=== PATIENT | female | born 1970 | race Caucasian/White ===

== ENCOUNTER → 2016-09-22 | Outpatient (CLI) | payer BC ==
[2016-09-22 12:56] VITALS: BMI 44.7
== END | disposition home or self-care (01) ==
LOC: BARWHC3 08:53
PROVIDERS: ATTEND Surgery
DX: Z71.3 Dietary counseling and surveillance (principal); E66.01 Morbid (severe) obesity due to excess calories; Z68.41 Body mass index [BMI] 40.0-44.9, adult
CPT/HCPCS: 97804

== ENCOUNTER 2016-12-17 11:10 | Day surgery (SDC) | payer BC ==
[2016-12-16 10:41] VITALS: BMI 41.1
[~2016-12-17 11:10] MED LIST: LACTATED RINGERS 1,000 ML IV SCH; LIDOCAINE 1% 20 ML VIAL (10MG/ML) FOR IV START INTRADERMA PRN
[2016-12-17 11:28] VITALS: RESP 16; TEMP 98.2
[2016-12-17] MEDS ORDERED: PROPOFOL 10 MG/ML 20 ML VIAL IV ONE (13:12)
[2016-12-17] MEDS ORDERED: LIDOCAINE 1% INJ 10MG/ML (20 ML MDV) ONE (13:12)
--- NOTE | 2016-12-17 13:13 | P.GSHP ---
History of Present Illness H&P Date: 12/17/16 Chief Complaint: GERD This a 46-year-old female referred from dr. leach . Patient presents today for EGD. She's had GERD issues with GERD. - Constitutional Constitutional: Reports as per HPI Past Medical History Past Medical History: Thyroid Disorder Additional Past Medical History / Comment(s): hypothyroidism, , hay fever, generalized edema (takes 40mg lasix daily) RLS History of Any Multi-Drug Resistant Organisms: MRSA Date of last positivie culture/infection: 2013 MDRO Source:: Respiratory tract (nose to lung bases) Past Surgical History: Adenoidectomy Additional Past Surgical History / Comment(s): biopsies of rash on bilateral legs (February 2016) , wisdom teeth removed under anesthesia Past Anesthesia/Blood Transfusion Reactions: No Reported Reaction Past Psychological History: Anxiety Smoking Status: Never smoker Past Alcohol Use History: None Reported Past Drug Use History: None Reported - Past Family History Mother Family Medical History: Hypertension, Myocardial Infarction ([place]) Additional Family Medical History / Comment(s): [place] in 2013, Father Additional Family Medical History / Comment(s): was an alcoholic, 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 Medications and Allergies Home Medications Medication Instructions Recorded Confirmed Type Cetirizine HCl/Pseudoephedrine 1 each PO BID 12/16/16 12/17/16 History [Zyrtec-D Tablet] Cholecalciferol (Vitamin D3) 2,000 units PO DAILY 12/16/16 12/17/16 History [Vitamin D3] Diazepam [Valium] 2.5 mg PO HS 12/16/16 12/17/16 History FLUoxetine HCL [Fluoxetine HCl] 10 mg PO BID 12/16/16 12/17/16 History Furosemide [Lasix] 40 mg PO DAILY 12/16/16 12/17/16 History Levothyroxine Sodium [Synthroid] 50 mcg PO DAILY 12/16/16 12/17/16 History Liothyronine Sodium [Cytomel] 5 mcg PO DAILY 12/16/16 12/17/16 History Q-Nasl 2 sprays EA NOSTRIL HS 12/16/16 12/17/16 History Allergies Allergy/AdvReac Type Severity Reaction Status Date / Time clindamycin Allergy Rash/Hives, Verified 12/16/16 10:32 diarrhea Surgical - Exam Vital Signs Temp Pulse Resp BP Pulse Ox 98.2 F 77 16 146/82 95 12/17/16 11:27 12/17/16 11:27 12/17/16 11:27 12/17/16 11:27 12/17/16 11:27 - General well developed, no distress - Eyes PERRL - ENT normal pinna - Neck no masses - Respiratory normal expansion - Cardiovascular Rhythm: regular - Abdomen Abdomen: soft, non tender Assessment and Plan Plan: GERD. We'll perform EGD.
--- NOTE | 2016-12-17 13:23 | P.OP ---
Date of Procedure: 12/17/16 Preoperative Diagnosis: GERD Postoperative Diagnosis: Mild antral gastritis Procedure(s) Performed: EGD Implants: Anesthesia: MAC Surgeon: Marlon Aden Pathology: other (Antrum) Condition: stable Disposition: PACU Indications for Procedure: Operative Findings: Description of Procedure: The patient's placed on the endoscopy table in the lateral position. She received IV sedation. The gastroscope some placed oropharynx and passed in the esophagus and stomach. Scope was then placed through the pylorus. The first and second portion of the duodenum appeared normal. Scope was then brought back the antrum and this appeared mildly inflamed. A biopsies performed. The scope was unretroflexed and remainder some appeared normal. The GE junction was at 40 cm. The distal esophagus appeared normal. The proximal esophagus. Normal. Scope withdrawn for patient.
[2016-12-17 14:03] VITALS: BP 143/74; PULSE 62
== END 2016-12-17 14:13 | disposition home or self-care (01) ==
LOC: ORWHC2ENDO 11:10
PROVIDERS: ATTEND Surgery
DX: K29.50 Unspecified chronic gastritis without bleeding (principal); E03.9 Hypothyroidism, unspecified; F41.9 Anxiety disorder, unspecified; Z79.899 Other long term (current) drug therapy; Z88.1 Allergy status to other antibiotic agents
CPT/HCPCS: 88305; 88342; 84703; 43239; J2001; J2704

== ENCOUNTER → 2016-12-29 | Outpatient (CLI) | payer BC ==
[2016-12-29 14:09] VITALS: BP 133/74; PULSE 85; TEMP 98; BMI 41.2
--- NOTE | 2016-12-29 14:10 | P.HPBAR ---
Bariatric H&P - History & Physicial H&P Date: 12/29/16 History & Physicial: Visit/CC: Patient initial contact: Initial weight: 129.092 kg Initial weight in pounds: Height: 5 ft 7 in Initial BMI: Last weight: Current weight: 119.386 kg Current weight in pounds: Current BMI: [place] body weight (based on NIH guidelines): Excess body weight loss: The patient is a 46 year-old F who presents for Bariatric Assessment. Patient resents today for new patient consultation for LAP-BAND surgery. Patient's mother had LAP-BAND surgery performed in the past. Her mother was successful in losing approximately 100 pounds of weight. Patient wished undergo LAP-BAND surgery. She's had lifetime problem with obesity BC. Her BMI is 42. Past Medical History Past Medical History: Thyroid Disorder Additional Past Medical History / Comment(s): hypothyroidism, , hay fever, generalized edema (takes 40mg lasix daily) RLS History of Any Multi-Drug Resistant Organisms: MRSA Year Discovered:: 2013 MDRO Source:: Respiratory tract (nose to lung bases) Past Surgical History: Adenoidectomy Additional Past Surgical History / Comment(s): biopsies of rash on bilateral legs (February 2016) , wisdom teeth removed under anesthesia Past Anesthesia/Blood Transfusion Reactions: No Reported Reaction Past Psychological History: Anxiety Smoking Status: Never smoker Past Alcohol Use History: None Reported Past Drug Use History: None Reported - Past Family History Mother Family Medical History: Hypertension, Myocardial Infarction ([place]) Additional Family Medical History / Comment(s): [place] in 2013, Father Additional Family Medical History / Comment(s): was an alcoholic, 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 Surgical - Exam - General well developed, no distress - Eyes PERRL - ENT normal pinna - Neck no masses - Respiratory normal expansion - Cardiovascular Rhythm: regular - Abdomen Abdomen: soft, non tender Bariatric Assessment & Plan Plan: Chad andrews German. Patient's BMI is 42. Patient will be scheduled for LAP-BAND surgery once she obtains insurance authorization. Bariatric Checklist Checklist: Plan: Checklist: EGD: 1. Hiatal hernia: 2. H. Pylori: HgbA1c: Vitamin D: Smoking: Never smoker Primary care physician referral: Psychiatry clearance: Cardiology clearance: Sleep study: Diet journal: VTE risk score: VTE risk level: Rehab needs at discharge:
== END | disposition home or self-care (01) ==
LOC: BARWHC3 13:09
PROVIDERS: ATTEND Surgery
DX: Z01.818 Encounter for other preprocedural examination (principal); F41.9 Anxiety disorder, unspecified; Z98.84 Bariatric surgery status
CPT/HCPCS: 99211

== ENCOUNTER 2017-03-06 06:08 | Inpatient (IN) | payer BC ==
[2017-02-26 14:49] VITALS: BMI 40.6
[~2017-03-06 06:08] MED LIST changes: -LACTATED RINGERS 1,000 ML IV SCH; -LIDOCAINE 1% 20 ML VIAL (10MG/ML) FOR IV START INTRADERMA PRN; +ceFAZolin 2 GM in SODIUM CHLORIDE 0.9% 100 ML IVPB ONE
[2017-03-06] MEDS ORDERED: ONDANSETRON 4 MG/2 ML VIAL IVP ONE ×2 (06:18→09:33)
[2017-03-06] MEDS ORDERED: SCOPOLAMINE 1.5MG/72HR PATCH TRANSDERM ONE (06:18)
[2017-03-06] MEDS ORDERED: HYDROmorphone 1 MG/ML 1 ML SYRINGE IVP PRN (06:18)
[2017-03-06] MEDS ORDERED: MIDAZOLAM 2 MG/2 ML VIAL IV PRN (06:18)
[2017-03-06] MEDS ORDERED: DEXAMETHASONE SOD PHOSPHATE 10 MG/ML 1 ML VIAL IV ONE (06:18)
[2017-03-06] MEDS: LACTATED RINGERS 1,000 ML IV SCH (06:53)
[2017-03-06] MEDS ORDERED: HEPARIN SODIUM,PORCINE 5,000 UNIT/ML 1 ML VIAL SQ ONE ×2 (07:49→07:50)
--- NOTE | 2017-03-06 07:51 | P.GSHP ---
History of Present Illness H&P Date: 03/06/17 Chief Complaint: Morbid obesity., BMI 41 This is a 46-year-old female who presents today for LAP-BAND procedure. Patient has had lifetime problems obesity. Patient undergo LAP-BAND surgery for treatment of her colon previously tomography study. Patient has been well detailed on the risk of surgery. Past Medical History Past Medical History: Sleep Apnea/CPAP/BIPAP, Thyroid Disorder Additional Past Medical History / Comment(s): hypothyroid History of Any Multi-Drug Resistant Organisms: MRSA Date of last positivie culture/infection: 2013 MDRO Source:: Respiratory tract (nose to lung bases) Past Surgical History: Adenoidectomy Additional Past Surgical History / Comment(s): biopsies of rash on bilateral legs , SI joint fusion pelvis Past Anesthesia/Blood Transfusion Reactions: Motion Sickness Smoking Status: Never smoker - Past Family History Mother Family Medical History: No Reported History Additional Family Medical History / Comment(s): [place] in 2013, Father Additional Family Medical History / Comment(s): was an alcoholic, 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 Medications and Allergies Home Medications Medication Instructions Recorded Confirmed Type Cetirizine HCl/Pseudoephedrine 1 each PO BID 12/16/16 03/06/17 History [Zyrtec-D Tablet] Cholecalciferol (Vitamin D3) 2,000 units PO DAILY 12/16/16 03/06/17 History [Vitamin D3] Diazepam [Valium] 2.5 mg PO HS 12/16/16 03/06/17 History FLUoxetine HCL [Fluoxetine HCl] 10 mg PO BID 12/16/16 02/26/17 History Furosemide [Lasix] 40 mg PO DAILY 12/16/16 03/06/17 History Levothyroxine Sodium [Synthroid] 50 mcg PO DAILY 12/16/16 03/06/17 History Liothyronine Sodium [Cytomel] 5 mcg PO DAILY 12/16/16 03/06/17 History Q-Nasl 2 sprays EA NOSTRIL HS 12/16/16 03/06/17 History HYDROcodone/APAP 10-325MG [[place] 1 tab PO TID PRN 02/26/17 02/26/17 History 10-325] Allergies Allergy/AdvReac Type Severity Reaction Status Date / Time clindamycin Allergy Rash/Hives, Verified 02/26/17 14:36 diarrhea Surgical - Exam Vital Signs Temp Pulse Resp BP Pulse Ox 98.1 F 80 16 105/62 95 03/06/17 06:50 03/06/17 06:50 03/06/17 06:50 03/06/17 06:50 03/06/17 06:50 - General well developed, no distress - Eyes PERRL - ENT normal pinna - Neck no masses - Respiratory normal expansion, normal respiratory effort - Cardiovascular Rhythm: regular - Abdomen Abdomen: soft, non tender Assessment and Plan Plan: Morbid obesity, BMI 41. We'll perform LAP-BAND procedure.
[2017-03-06] MEDS ORDERED: SUCCINYLCHOLINE CHLORIDE 100 MG/5 ML SYR IV ONE (07:54)
[2017-03-06] MEDS ORDERED: ROCURONIUM BROMIDE 10 MG/ML 10 ML VIAL IV ONE (07:54)
[2017-03-06] MEDS ORDERED: GLYCOPYRROLATE 0.2 MG/ML 2 ML VIAL ONE (07:54)
[2017-03-06] MEDS ORDERED: PROPOFOL 10 MG/ML 20 ML VIAL IV ONE (07:54)
[2017-03-06] MEDS ORDERED: MIDAZOLAM 2 MG/2 ML VIAL ONE (07:54)
[2017-03-06] MEDS ORDERED: HYDROmorphone (PF) 1 MG/ML ONE (07:54)
[2017-03-06] MEDS ORDERED: LIDOCAINE 1% INJ 10MG/ML (20 ML MDV) ONE (07:54)
[2017-03-06] MEDS ORDERED: NEOSTIGMINE 1 MG/ML 10 ML VIAL ONE (07:54)
[2017-03-06] MEDS ORDERED: fentaNYL (PF) 50 MCG/ML 2 ML AMP ONE (07:54)
[2017-03-06] MEDS ORDERED: LIDOCAINE 2%-EPI 1:100,000 20 ML VIAL SQ ONE (08:33)
[2017-03-06] MEDS ORDERED: BUPIVACAINE (PF) 0.25% 30 ML VIAL SQ ONE (08:33)
[2017-03-06] MEDS ORDERED: LACTATED RINGERS 1,000 ML IV ONE (08:52)
[2017-03-06] MEDS ORDERED: NALOXONE 0.4 MG/ML 1 ML VIAL IV PRN (09:55)
[2017-03-06] MEDS ORDERED: diphenhydrAMINE 50 MG/ML 1 ML VIAL IVP ONE (10:00)
[2017-03-06] MEDS: ACETAMINOPHEN IV (For NPO) 1,000 MG in EMPTY BAG 1 BAG IVPB ONE ×2 (10:25→10:41)
[2017-03-06] MEDS: KETOROLAC 30 MG/ML 1 ML VIAL IVP SCH ×2 (10:40→17:25)
[2017-03-06] MEDS: HYDROmorphone 1 MG/ML 1 ML SYRINGE IVP PRN ×3 (11:30→20:49)
[2017-03-06] MEDS: ONDANSETRON 4 MG/2 ML VIAL IVP PRN ×2 (11:31→21:23)
[2017-03-06] MEDS: 0.9% NACL WITH KCL 20 MEQ/L 1,000 ML IV SCH ×2 (11:31→17:26)
[2017-03-06] MEDS: ALBUTEROL NEBULIZED 2.5 MG/3 ML INHALATION SCH ×3 (12:02→19:49)
--- NOTE | 2017-03-06 13:24 | P.OP ---
Date of Procedure: 03/06/17 Preoperative Diagnosis: Morbid obesity Postoperative Diagnosis: Morbid obesity Procedure(s) Performed: LAP-BAND procedure Implants: Anesthesia: LINO Surgeon: Marlon Aden Estimated Blood Loss (ml): 5 Pathology: none sent Condition: stable Disposition: PACU Indications for Procedure: Operative Findings: Description of Procedure: The patient's placed on the operative table in the supine position. She received general anesthesia. She was then placed in dorsal lithotomy position. Her abdomen was prepped and draped usual sterile fashion. The skin was incised in the left periumbilical area and then using a 5 mm optical trocar under direct visitation. And was entered. The abdomen was insufflated and then after adequate insufflation the laparoscope placed back the pleural cavity. Next a 5 mm trocar was placed in the right epigastric position and right lateral position and then a 15 mm trochars placed in the left epigastric position and another 5 mm trocar was placed in the left lateral position. The left lateral lobe liver was retracted. The stomach was visualized. The angle of Hiss was then bluntly dissected. And then the pars flaccida area is also considering dissection. Using gentle dissection a grasper is placed in the retrogastric tunnel between the pars flaccida and the angle of Hiss. The LAP- BAND was placed into the pleural cavity and then the LAP-BAND was drawn around the stomach. In the LAP-BAND was withdrawn. The buckle was then secured and the buckle was then closed. Next the anterior gastric wall plication was performed using 2-0 Ethibond suture. Care was taken down and preserve the stomach and esophagus. And identify the band. The PEG tube was then brought through the 15 mm trocar site. The LAP-BAND port was then secured to the PEG tube and secured to the fascia using 0 nylon suture. The LAP-BAND system was then flushed. A 2 mL was placed into the band. The skin incision sites were closed with 3-0 Monocryl suture. Dermabond was applied. Patient was sent to recovery in stable condition.
--- NOTE | 2017-03-06 14:35 | FL ---
EXAMINATION TYPE: FL UGI DATE OF EXAM: 03/06/2017 COMPARISON: NONE HISTORY: Post lap band procedure. TECHNIQUE: A single contrast UGI study is performed. FINDINGS: Lap band is in normal position in normal orientation. Catheter appears intact. Contrast pas ses from the distal esophagus through the lap band with mild hesitancy. No extravasation of contrast is evident. No free air is noted during this examination. 38 seconds of fluoroscopy time was provided. 12 images are obtained. Overhead radiographs were obtained which are unremarkable. IMPRESSIONS: 1. Normal post lap band insertion without obstruction or hesitancy. No extravasation.
[2017-03-06] MEDS ORDERED: LORATADINE 10 MG TAB PO PRN (19:16)
[2017-03-06] MEDS: FUROSEMIDE 40 MG TAB PO SCH (20:51)
[2017-03-07] MEDS: 0.9% NACL WITH KCL 20 MEQ/L 1,000 ML IV SCH ×2 (00:39→05:43)
[2017-03-07] MEDS: KETOROLAC 30 MG/ML 1 ML VIAL IVP SCH ×2 (00:40→05:42)
[2017-03-07] MEDS: LACTATED RINGERS 1,000 ML IV SCH (05:45)
[2017-03-07] MEDS ORDERED: LEVOTHYROXINE 50 MCG TAB PO SCH (06:30)
[2017-03-07 08:50] VITALS: BP 120/63; PULSE 67; TEMP 97.8
[2017-03-07] MEDS: FUROSEMIDE 40 MG TAB PO SCH (08:56)
[2017-03-07] MEDS: HYDROmorphone 1 MG/ML 1 ML SYRINGE IVP PRN (08:56)
[2017-03-07] MEDS ORDERED: PANTOPRAZOLE 40 MG/10 ML VIAL IV SCH (09:00)
[2017-03-07] MEDS ORDERED: FLUoxetine HCL 10 MG CAP PO SCH (09:00)
[2017-03-07] MEDS ORDERED: FUROSEMIDE 40 MG TAB PO SCH (09:00)
[2017-03-07] MEDS ORDERED: ENOXAPARIN 40 MG/0.4 ML SYRINGE SQ SCH (09:00)
[2017-03-07] MEDS: ALBUTEROL NEBULIZED 2.5 MG/3 ML INHALATION SCH ×2 (11:44→12:18)
--- NOTE | 2017-03-07 11:44 | P.DS ---
Providers Date of admission: 03/06/17 06:08 Attending physician: Marlon Aden Consults: 03/06/17 13:24 Consult Physician Routine Consulting Provider: Leonard Francis Consult Reason/Comments: Medical management Do you want consulting provider notified?: Yes Primary care physician: Stated None Plan - Discharge Summary New Discharge Prescriptions: No Action Furosemide [Lasix] 40 mg PO DAILY FLUoxetine HCL [Fluoxetine HCl] 10 mg PO BID Diazepam [Valium] 2.5 mg PO HS Cholecalciferol (Vitamin D3) [Vitamin D3] 2,000 units PO DAILY Liothyronine Sodium [Cytomel] 5 mcg PO DAILY Levothyroxine Sodium [Synthroid] 50 mcg PO DAILY Q-Nasl 2 sprays EA NOSTRIL HS Cetirizine HCl/Pseudoephedrine [Zyrtec-D Tablet] 1 tab PO BID HYDROcodone/APAP 10-325MG [[place] 10-325] 1 tab PO TID PRN PRN Reason: Pain Discharge Medication List Cetirizine HCl/Pseudoephedrine [Zyrtec-D Tablet] 1 tab PO BID 12/16/16 [History] Cholecalciferol (Vitamin D3) [Vitamin D3] 2,000 units PO DAILY 12/16/16 [History ] Diazepam [Valium] 2.5 mg PO HS 12/16/16 [History] FLUoxetine HCL [Fluoxetine HCl] 10 mg PO BID 12/16/16 [History] Furosemide [Lasix] 40 mg PO DAILY 12/16/16 [History] Levothyroxine Sodium [Synthroid] 50 mcg PO DAILY 12/16/16 [History] Liothyronine Sodium [Cytomel] 5 mcg PO DAILY 12/16/16 [History] Q-Nasl 2 sprays EA NOSTRIL HS 12/16/16 [History] HYDROcodone/APAP 10-325MG [[place] 10-325] 1 tab PO TID PRN 02/26/17 [History] Follow up Appointment(s)/Referral(s): Marlon Aden MD [STAFF PHYSICIAN] - 1 Week Patient Instructions/Handouts: Nutrition after Bariatric Surgery (GEN) Activity/Diet/Wound Care/Special Instructions: Per protocol. No heavy lifting for 2 weeks. Discharge Disposition: HOME SELF-CARE
[2017-03-07 11:47] VITALS: RESP 14
[2017-03-07] MEDS ORDERED: CHOLECALCIFEROL 1,000 UNIT TAB PO SCH (12:00)
--- NOTE | 2017-03-07 12:07 | CONS ---
DATE OF CONSULT: 03/06/2017 CHIEF COMPLAINT: A 46-year-old white female admitted status post lap band surgery for medical management consult. Patient has a history of some depression, some generalized edema, allergic rhinitis, hypothyroidism and chronic lumbar disc disease, status post prior surgery due to an accident. Home medicines have been restarted. She is having no chest pain or shortness of breath. Some nausea. Some chest pressure from gas. REVIEW OF SYSTEMS: A fourteen point review of system is negative except for what is mentioned in HPI. PHYSICAL EXAM: Vital signs are stable, afebrile. Temp is 98.3. Blood pressure 120s over 64, O2 of 97% on room air, respiratory ( ). CARDIOVASCULAR: S1 and S2. Lungs are clear. GI: Soft. HEMATOLOGIC: Negative Homans. PSYCH: Fair mood affect. NEUROLOGIC: Alert and oriented x3. ASSESSMENT: 1. Status post gastric lap band. 2. Hypothyroidism. 3. Generalized edema. Continue home medications. Monitor medical care. Thank you Dr. Aden. COLBY
--- NOTE | 2017-03-07 16:04 | PN ---
SUBJECTIVE: She is status post gastric lap band, for medical management. Her medications she is requesting today include Synthroid, Prozac, a dose of her Lasix, Claritin, Protonix and her home medicines to be restarted. They have been restarted. She will be discharged home as she is medically stable. She is up ambulating down the zhang with minimum pain. No chest pain or shortness of breath. She has obvious obesity. LUNGS: Clear. CARDIOVASCULAR: S1/S2. HEMATOLOGIC: 2+ pedal edema. ASSESSMENT: 1. Lymphedema type changes. 2. Obesity. 3. Hypothyroidism. 4. Hypertension. 5. Lumbar disc disease. Home medicines will be restarted. Ambulate, discharge home, follow up as an outpatient. COLBY
== END 2017-03-07 14:58 | disposition home or self-care (01) | DRG 621 ==
LOC: 2ORWHC 06:08 → 3SUR 09:20
PROVIDERS: ADMIT Surgery; ATTEND Surgery
PROC: 0DV64CZ Restriction of Stomach with Extraluminal Device, Percutaneous Endoscopic Approach (ICD-10-PCS; principal; 2017-03-06 07:40)
DX: E66.01 Morbid (severe) obesity due to excess calories (principal); I10 Essential (primary) hypertension; E03.9 Hypothyroidism, unspecified; Z68.41 Body mass index [BMI] 40.0-44.9, adult; G47.30 Sleep apnea, unspecified; I89.0 Lymphedema, not elsewhere classified; Z79.899 Other long term (current) drug therapy; Z82.49 Family history of ischemic heart disease and other diseases of the circulatory system; M47.896 Other spondylosis, lumbar region
CPT/HCPCS: 74240; 81025; 84703; 94640; 94760; 94762

== ENCOUNTER → 2017-03-16 | Outpatient (CLI) | payer BC ==
[2017-03-16 14:29] VITALS: BP 121/70; PULSE 77; RESP 20; TEMP 98.8; BMI 40.0
--- NOTE | 2017-03-16 14:47 | P.HPBAR ---
Bariatric H&P - History & Physicial H&P Date: 03/16/17 History & Physicial: Visit/CC: post op Patient initial contact: Initial weight: 129.092 kg Initial weight in pounds: 284.60 Height: 5 ft 7 in Initial BMI: 44.5 Last weight: Current weight: 116.029 kg Current weight in pounds: 255.80 Current BMI: 40.0 [place] body weight (based on NIH guidelines): 61.235 kg Excess body weight loss: 19.2% The patient is a 46 year-old F who presents for Bariatric Assessment. Patient presents today for lab band follow. She is 2 weeks postop. She feels fairly good. She has had some minimal incisional pain. Past Medical History Past Medical History: Sleep Apnea/CPAP/BIPAP, Thyroid Disorder Additional Past Medical History / Comment(s): hypothyroid History of Any Multi-Drug Resistant Organisms: MRSA Year Discovered:: 2013 MDRO Source:: Respiratory tract (nose to lung bases) Past Surgical History: Adenoidectomy Additional Past Surgical History / Comment(s): biopsies of rash on bilateral legs , SI joint fusion pelvis Past Anesthesia/Blood Transfusion Reactions: Motion Sickness Past Psychological History: Anxiety Smoking Status: Never smoker Past Alcohol Use History: None Reported Past Drug Use History: None Reported - Past Family History Mother Family Medical History: No Reported History Additional Family Medical History / Comment(s): [place] in 2013, Father Additional Family Medical History / Comment(s): was an alcoholic, 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 Surgical - Exam Vital Signs Temp Pulse Resp BP 98.8 F 77 20 121/70 03/16/17 14:22 03/16/17 14:22 03/16/17 14:22 03/16/17 14:22 - General well developed, no distress - Eyes PERRL - ENT normal pinna - Neck no masses - Respiratory normal expansion - Cardiovascular Rhythm: regular - Abdomen Abdomen: soft, non tender Bariatric Assessment & Plan Plan: Status post lap band procedure. Patient did well. Her incision sites are clean dry and intact. She'll follow-up in 2 weeks. Bariatric Checklist Checklist: Plan: Checklist: EGD: 1. Hiatal hernia: 2. H. Pylori: HgbA1c: Vitamin D: Smoking: Never smoker Primary care physician referral: 284.6l Psychiatry clearance: Cardiology clearance: Sleep study: Diet journal: VTE risk score: VTE risk level: Rehab needs at discharge:
== END | disposition home or self-care (01) ==
LOC: BARWHC3 13:34
PROVIDERS: ATTEND Surgery
DX: Z48.815 Encounter for surgical aftercare following surgery on the digestive system (principal); Z98.84 Bariatric surgery status; E66.01 Morbid (severe) obesity due to excess calories
CPT/HCPCS: 97803; 99211

== ENCOUNTER → 2017-03-30 | Outpatient (CLI) | payer BC ==
[2017-03-30 16:20] VITALS: BP 125/78; PULSE 77; TEMP 98.4; BMI 39.0
--- NOTE | 2017-03-30 16:43 | P.HPBAR ---
Bariatric H&P - History & Physicial H&P Date: 03/30/17 History & Physicial: Visit/CC: post opvisit Patient initial contact: Initial weight: 129.092 kg Initial weight in pounds: 284.60 Height: 5 ft 7 in Initial BMI: 44.5 Last weight: Current weight: 113.171 kg Current weight in pounds: 249.50 Current BMI: 39.0 [place] body weight (based on NIH guidelines): 61.235 kg Excess body weight loss: 23.4% The patient is a 46 year-old F who presents for Bariatric Assessment. The patient presents today for her LAP-BAND adjustment. She is requesting a fill of her band. Past Medical History Past Medical History: Sleep Apnea/CPAP/BIPAP, Thyroid Disorder Additional Past Medical History / Comment(s): hypothyroid History of Any Multi-Drug Resistant Organisms: MRSA Year Discovered:: 2013 MDRO Source:: Respiratory tract (nose to lung bases) Past Surgical History: Adenoidectomy Additional Past Surgical History / Comment(s): biopsies of rash on bilateral legs , SI joint fusion pelvis Past Anesthesia/Blood Transfusion Reactions: Motion Sickness Past Psychological History: Anxiety Smoking Status: Never smoker Past Alcohol Use History: None Reported Past Drug Use History: None Reported - Past Family History Mother Family Medical History: No Reported History Additional Family Medical History / Comment(s): [place] in 2013, Father Additional Family Medical History / Comment(s): was an alcoholic, 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 Surgical - Exam Vital Signs Temp Pulse BP 98.4 F 77 125/78 03/30/17 16:18 03/30/17 16:18 03/30/17 16:18 - General well developed, no distress - Eyes PERRL - Abdomen Abdomen: soft, non tender Bariatric Assessment & Plan Plan: Patient LAP-BAND was adjusted. She had 3 mL added to her band. She will follow -up in one month. Bariatric Checklist Checklist: Plan: Checklist: EGD: 1. Hiatal hernia: 2. H. Pylori: HgbA1c: Vitamin D: Smoking: Never smoker Primary care physician referral: 284.6l Psychiatry clearance: Cardiology clearance: Sleep study: Diet journal: VTE risk score: VTE risk level: Rehab needs at discharge:
== END ==
LOC: BARWHC3 15:26
PROVIDERS: ATTEND Surgery
DX: Z48.815 Encounter for surgical aftercare following surgery on the digestive system (principal); Z98.84 Bariatric surgery status; E66.01 Morbid (severe) obesity due to excess calories
CPT/HCPCS: 97803; 99211

== ENCOUNTER → 2017-08-31 | Outpatient (CLI) | payer BC ==
--- NOTE | 2017-08-31 16:25 | P.HPBAR ---
Bariatric H&P - History & Physicial H&P Date: 08/31/17 History & Physicial: Visit/CC: Patient initial contact: Initial weight: 129.092 kg Initial weight in pounds: Height: Initial BMI: Last weight: 231 Current weight: 241 Current weight in pounds: Current BMI: [place] body weight (based on NIH guidelines): Excess body weight loss: The patient is a 46 year-old F who presents for Bariatric Assessment. The patient is requesting a fill of her LAP-BAND. She currently is hungry. She's gained approximately Past Medical History Past Medical History: Sleep Apnea/CPAP/BIPAP, Thyroid Disorder Additional Past Medical History / Comment(s): hypothyroid History of Any Multi-Drug Resistant Organisms: MRSA Year Discovered:: 2013 MDRO Source:: Respiratory tract (nose to lung bases) Past Surgical History: Adenoidectomy Additional Past Surgical History / Comment(s): biopsies of rash on bilateral legs , SI joint fusion pelvis Past Anesthesia/Blood Transfusion Reactions: Motion Sickness Smoking Status: Never smoker - Past Family History Mother Family Medical History: No Reported History Additional Family Medical History / Comment(s): [place] in 2013, Father Additional Family Medical History / Comment(s): was an alcoholic, 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 Surgical - Exam - General well developed, no distress - Eyes PERRL - Abdomen Abdomen: soft, non tender Bariatric Assessment & Plan Plan: His LAP-BAND was adjusted. She had 0.5 mL added to her band. She currently has 4.5 mL band. She will follow-up in one month. Bariatric Checklist Checklist: Plan: Checklist: EGD: 1. Hiatal hernia: 2. H. Pylori: HgbA1c: Vitamin D: Smoking: Never smoker Primary care physician referral: 284.6l Psychiatry clearance: Cardiology clearance: Sleep study: Diet journal: VTE risk score: VTE risk level: Rehab needs at discharge:
[2017-09-04 13:10] VITALS: BP 136/72; PULSE 81; RESP 15; TEMP 98.2; BMI 37.8
== END | disposition home or self-care (01) ==
LOC: BARWHC3 15:31
PROVIDERS: ATTEND Surgery
DX: Z48.815 Encounter for surgical aftercare following surgery on the digestive system (principal); Z98.84 Bariatric surgery status
CPT/HCPCS: 99212

== ENCOUNTER → 2017-11-30 | Outpatient (CLI) | payer BC ==
[2017-11-30 13:51] VITALS: BP 104/71; PULSE 90; RESP 16; TEMP 98.4; BMI 36.9
--- NOTE | 2017-11-30 15:33 | P.HPBAR ---
Bariatric H&P - History & Physicial H&P Date: 11/30/17 History & Physicial: Visit/CC: band adj Patient initial contact: Initial weight: 129.092 kg Initial weight in pounds: 284.60 Height: 5 ft 7 in Initial BMI: 44.5 Last weight: Current weight: 107.048 kg Current weight in pounds: 236.00 Current BMI: 36.9 [place] body weight (based on NIH guidelines): 61.235 kg Excess body weight loss: 32.4% The patient is a 47 year-old F who presents for Bariatric Assessment. Patient presents today for lab band follow up. She currently is hungry and is requesting a fill. Past Medical History Past Medical History: Sleep Apnea/CPAP/BIPAP, Thyroid Disorder Additional Past Medical History / Comment(s): hypothyroid History of Any Multi-Drug Resistant Organisms: MRSA Year Discovered:: 2013 MDRO Source:: Respiratory tract (nose to lung bases) Past Surgical History: Adenoidectomy, Bariatric Surgery Additional Past Surgical History / Comment(s): biopsies of rash on bilateral legs , SI joint fusion pelvis, LAP BAND february 2018 Past Anesthesia/Blood Transfusion Reactions: Motion Sickness Smoking Status: Never smoker - Past Family History Mother Family Medical History: No Reported History Additional Family Medical History / Comment(s): [place] in 2013, Father Additional Family Medical History / Comment(s): was an alcoholic, 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 Surgical - Exam Vital Signs Temp Pulse Resp BP 98.4 F 90 16 104/71 11/30/17 13:49 11/30/17 13:49 11/30/17 13:49 11/30/17 13:49 - General well developed, no distress - Abdomen Abdomen: soft, non tender Bariatric Assessment & Plan Plan: Patient LAP-BAND was adjusted. She had 0.4 mL added to her band. She currently is 4.4 mL in the band. Will follow-up in one month. Bariatric Checklist Checklist: Plan: Checklist: EGD: 1. Hiatal hernia: 2. H. Pylori: HgbA1c: Vitamin D: Smoking: Never smoker Primary care physician referral: 284.6l Psychiatry clearance: Cardiology clearance: Sleep study: Diet journal: VTE risk score: VTE risk level: Rehab needs at discharge:
== END | disposition home or self-care (01) ==
LOC: BARWHC3 13:29
PROVIDERS: ATTEND Surgery
DX: Z46.51 Encounter for fitting and adjustment of gastric lap band (principal); T73.0XXA Starvation, initial encounter; G47.30 Sleep apnea, unspecified; E03.9 Hypothyroidism, unspecified; Z86.14 Personal history of Methicillin resistant Staphylococcus aureus infection; Z99.89 Dependence on other enabling machines and devices; Z98.84 Bariatric surgery status; Z98.890 Other specified postprocedural states
CPT/HCPCS: 99212

== ENCOUNTER → 2018-02-08 | Outpatient (CLI) | payer BC ==
[2018-02-08 15:35] VITALS: BP 115/75; PULSE 71; RESP 18; TEMP 98.7; BMI 34.8
--- NOTE | 2018-02-08 16:39 | P.HPBAR ---
Bariatric H&P - History & Physicial H&P Date: 02/08/18 History & Physicial: Visit/CC: band fill Patient initial contact: Initial weight: 129.092 kg Initial weight in pounds: 284.60 Height: 5 ft 7 in Initial BMI: 44.5 Last weight: Current weight: 100.879 kg Current weight in pounds: 222.40 Current BMI: 34.8 [place] body weight (based on NIH guidelines): 61.235 kg Excess body weight loss: 41.5% The patient is a 47 year-old F who presents for Bariatric Assessment. Patient presents today for her LAP-BAND adjustment. She currently feels hungry and wishes to have a fill. Past Medical History Past Medical History: Sleep Apnea/CPAP/BIPAP, Thyroid Disorder Additional Past Medical History / Comment(s): hypothyroid History of Any Multi-Drug Resistant Organisms: MRSA Year Discovered:: 2013 MDRO Source:: Respiratory tract (nose to lung bases) Past Surgical History: Adenoidectomy, Bariatric Surgery Additional Past Surgical History / Comment(s): biopsies of rash on bilateral legs , SI joint fusion pelvis, LAP BAND february 2018 Past Anesthesia/Blood Transfusion Reactions: Motion Sickness Past Psychological History: Anxiety Smoking Status: Never smoker Past Alcohol Use History: None Reported Past Drug Use History: None Reported - Past Family History Mother Family Medical History: No Reported History Additional Family Medical History / Comment(s): [place] in 2013, Father Additional Family Medical History / Comment(s): was an alcoholic, 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 Surgical - Exam Vital Signs Temp Pulse Resp BP 98.7 F 71 18 115/75 02/08/18 15:29 02/08/18 15:29 02/08/18 15:29 02/08/18 15:29 - General well developed, no distress - Eyes PERRL - Abdomen Abdomen: soft, non tender Bariatric Assessment & Plan Plan: Patient's lap band was adjusted. She had 0.5 mL added to her band. She currently has 5.4 mL in the band. She will follow-up in one month. Bariatric Checklist Checklist: Plan: Checklist: EGD: 1. Hiatal hernia: 2. H. Pylori: HgbA1c: Vitamin D: Smoking: Never smoker Primary care physician referral: 284.6l Psychiatry clearance: Cardiology clearance: Sleep study: Diet journal: VTE risk score: VTE risk level: Rehab needs at discharge:
== END ==
LOC: BARWHC3 15:18
PROVIDERS: ATTEND Surgery
DX: Z48.815 Encounter for surgical aftercare following surgery on the digestive system (principal); Z98.84 Bariatric surgery status
CPT/HCPCS: 99212

== ENCOUNTER → 2018-09-13 | Outpatient (CLI) | payer BC ==
[2018-09-13 13:38] VITALS: BP 121/80; PULSE 86; RESP 16; TEMP 98.7; BMI 35.9
--- NOTE | 2018-09-13 14:36 | P.HPBAR ---
Bariatric H&P - History & Physicial H&P Date: 09/13/18 History & Physicial: Visit/CC: band adj Patient initial contact: Initial weight: 129.092 kg Initial weight in pounds: 284.60 Height: 5 ft 7 in Initial BMI: 44.5 Last weight: Current weight: 103.929 kg Current weight in pounds: 229.13 Current BMI: 35.9 [place] body weight (based on NIH guidelines): 61.235 kg Excess body weight loss: 37.0% The patient is a 47 year-old F who presents for Bariatric Assessment. Patient presents today for lab band follow. She is requesting a fill. She currently feels hungry. Past Medical History Past Medical History: Sleep Apnea/CPAP/BIPAP, Thyroid Disorder Additional Past Medical History / Comment(s): hypothyroid History of Any Multi-Drug Resistant Organisms: MRSA Year Discovered:: 2013 MDRO Source:: Respiratory tract (nose to lung bases) Past Surgical History: Adenoidectomy, Bariatric Surgery, Hysterectomy Additional Past Surgical History / Comment(s): biopsies of rash on bilateral legs , SI joint fusion pelvis, LAP BAND february 2018, total hysterectomy 2018 Past Anesthesia/Blood Transfusion Reactions: Motion Sickness Past Psychological History: Anxiety Smoking Status: Never smoker Past Alcohol Use History: None Reported Past Drug Use History: None Reported - Past Family History Mother Family Medical History: No Reported History Additional Family Medical History / Comment(s): [place] in 2013, Father Additional Family Medical History / Comment(s): was an alcoholic, 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 Surgical - Exam Vital Signs Temp Pulse Resp BP 98.7 F 86 16 121/80 09/13/18 13:34 09/13/18 13:34 09/13/18 13:34 09/13/18 13:34 - General well developed, well nourished, no distress - Eyes PERRL - ENT normal pinna - Neck no masses - Respiratory normal expansion - Cardiovascular Rhythm: regular - Abdomen Abdomen: soft, non tender Bariatric Assessment & Plan Plan: Patient's lap band was adjusted. She had 1 mL added to her band. She currently has 6.4 mL in the band. She will follow-up in 4 weeks. She was able require without difficulty. Bariatric Checklist Checklist: Plan: Checklist: EGD: 1. Hiatal hernia: 2. H. Pylori: HgbA1c: Vitamin D: Smoking: Never smoker Primary care physician referral: 284.6l Psychiatry clearance: Cardiology clearance: Sleep study: Diet journal: VTE risk score: VTE risk level: Rehab needs at discharge:
== END ==
LOC: BARWHC3 13:15
PROVIDERS: ATTEND Surgery
DX: Z48.815 Encounter for surgical aftercare following surgery on the digestive system (principal); Z98.84 Bariatric surgery status
CPT/HCPCS: 99212

== ENCOUNTER → 2019-04-11 | Outpatient (CLI) | payer BC ==
[2019-04-11 15:18] VITALS: BP 130/67; PULSE 97; RESP 16; TEMP 98.4; BMI 38.3
--- NOTE | 2019-04-14 11:03 | P.HPBAR ---
Bariatric H&P - History & Physicial H&P Date: 04/11/19 History & Physicial: Visit/CC: band adj Patient initial contact: Initial weight: 129.092 kg Initial weight in pounds: 284.60 Height: 5 ft 7 in Initial BMI: 44.5 Last weight: Current weight: 111.158 kg Current weight in pounds: 245.06 Current BMI: 38.3 [place] body weight (based on NIH guidelines): 61.235 kg Excess body weight loss: 26.4% The patient is a 48 year-old F who presents for Bariatric Assessment. Patient presents today for her LAP-BAND adjustment. She currently is hungry. Past Medical History Past Medical History: Sleep Apnea/CPAP/BIPAP, Thyroid Disorder Additional Past Medical History / Comment(s): hypothyroid History of Any Multi-Drug Resistant Organisms: MRSA Year Discovered:: 2013 MDRO Source:: Respiratory tract (nose to lung bases) Past Surgical History: Adenoidectomy, Back Surgery, Bariatric Surgery, Hysterectomy Additional Past Surgical History / Comment(s): biopsies of rash on bilateral legs , SI joint fusion pelvis, LAP BAND february 2018, total hysterectomy 2018.Spine Surgery. Pt also developed staph infection while in hospital and pt had wound vac that she had gotten off yesterday. 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 Surgical - Exam Vital Signs Temp Pulse Resp BP 98.4 F 97 16 130/67 04/11/19 15:15 04/11/19 15:15 04/11/19 15:15 04/11/19 15:15 - General well developed, well nourished - Abdomen Abdomen: soft, non tender Bariatric Assessment & Plan Plan: The patient's lap band was adjusted. 0.4 mL was added to the band. She currently has 6 mL in the band. She will follow-up in one month. Bariatric Checklist Checklist: Plan: Checklist: EGD: 1. Hiatal hernia: 2. H. Pylori: HgbA1c: Vitamin D: Smoking: Never smoker Primary care physician referral: 284.6l Psychiatry clearance: Cardiology clearance: Sleep study: Diet journal: VTE risk score: VTE risk level: Rehab needs at discharge:
== END ==
LOC: BARWHC3 14:25
PROVIDERS: ATTEND Surgery
DX: Z46.51 Encounter for fitting and adjustment of gastric lap band (principal); Z98.84 Bariatric surgery status
CPT/HCPCS: 99212

== ENCOUNTER → 2021-01-07 | Outpatient (CLI) | payer BC ==
[2021-01-07 15:13] VITALS: BP 108/73; PULSE 77; RESP 16; TEMP 98; BMI 37.5
--- NOTE | 2021-01-08 12:37 | P.HPBAR ---
Bariatric H&P - History & Physicial H&P Date: 01/07/21 History & Physicial: Visit/CC: band f/u Patient initial contact: Initial weight: 129.092 kg Initial weight in pounds: 284.60 Height: 5 ft 7 in Initial BMI: 44.5 Last weight: Current weight: 108.862 kg Current weight in pounds: 240.00 Current BMI: 37.5 [place] body weight (based on NIH guidelines): 61.235 kg Excess body weight loss: 29.8% The patient is a 50 year-old F who presents for Bariatric Assessment. Patient has complaints of dysphagia. She is requesting fluid removed for band. Past Medical History Past Medical History: Sleep Apnea/CPAP/BIPAP, Thyroid Disorder Additional Past Medical History / Comment(s): hypothyroid History of Any Multi-Drug Resistant Organisms: MRSA Year Discovered:: 2013 MDRO Source:: Respiratory tract (nose to lung bases) Past Surgical History: Adenoidectomy, Back Surgery, Bariatric Surgery, Hysterectomy Additional Past Surgical History / Comment(s): biopsies of rash on bilateral legs , SI joint fusion pelvis, LAP BAND february 2018, total hysterectomy 2018.Spine Surgery. Pt also developed staph infection while in hospital and pt had wound vac that she had gotten off yesterday. 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 Surgical - Exam Vital Signs Temp Pulse Resp BP 98 F 77 16 108/73 01/07/21 15:11 01/07/21 15:11 01/07/21 15:11 01/07/21 15:11 - General well developed, well nourished, no distress - Eyes PERRL - ENT normal pinna - Abdomen Abdomen: soft, non tender Bariatric Assessment & Plan Plan: Patient LAP-BAND was just. She has 5.5 mL removed the band. She currently is 0 mL in the band. She'll follow-up in 2 weeks. Bariatric Checklist Checklist: Plan: Checklist: EGD: 1. Hiatal hernia: 2. H. Pylori: HgbA1c: Vitamin D: Smoking: Never smoker Primary care physician referral: 284.6l Psychiatry clearance: Cardiology clearance: Sleep study: Diet journal: VTE risk score: VTE risk level: Rehab needs at discharge:
== END ==
LOC: BARWHC3 14:40
PROVIDERS: ATTEND Surgery
DX: Z46.51 Encounter for fitting and adjustment of gastric lap band (principal); F41.9 Anxiety disorder, unspecified; Z98.84 Bariatric surgery status; Z88.1 Allergy status to other antibiotic agents
CPT/HCPCS: 99212